=== PATIENT | male | born 1975 | race Caucasian/White ===

== ENCOUNTER 2023-05-20 09:17 | Outpatient (AMB) | payer BC, SELFPAY ==
--- NOTE | 2023-05-20 09:17 | A.OFFVIS_ITS ---
Intake Vital Signs 05/20/23 09:22 Height 6 ft Weight 159 lb 2 oz BMI 21.6 BP 124/76 Blood Pressure Location Lt brachial Position Sitting Respiration 15 Pulse 75 Pulse Source Pulse Oximeter Pulse Oximetry (%) 98 Oxygen Delivery Method Room Air Intake Visit Reasons: [id number] Intake Note: Pt presents to the office for new pt evaluation for nerve pain s/p TBI. He reports nerve pain on the left side of his head where my prosthetic meets my bone He reports it is sharp shooting pain that radiates towards the left rear side of his head along his scar. He also gets right sided pain but not as intense as the left. He states he is unable to get up quickly if bent over because this makes him very dizzy, causes visual disturbances and pain that makes him winded . His head injury was in . He feels the nerve pain has gotten worse as oposed to better over the years. Allergies duloxetine [From Cymbalta] Allergy (Mild, Verified 05/20/23 09:21) Abdominal Pain Medication List - Last Reconciled 05/20/23 by Eugenia Young MD amitriptyline 1-2 tabs qhs orally bedtime; lidocaine 5% 1 appl topical BEDTIME PRN HPI HPI Comments History of Present Illness Details 47y/o male comes for management of chron ic headaches since his head injury in 2011. In 2011 he had a fall at his home and hit his head. 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 He had left frontoparietal , left fronto SAH , right parietal subdural , left cerebellar , with basial skull fracture left temporal intraparenchymal hemorrhage , left temporal craniotomy and parietal lobectomy. He had 1 seizure when he was in PT and since then stable . He was on antiepiletics for 2 years and has been good [facility] But headaches have been persistent , [facility] [place]- tried on multiple medications AMitriptyline Gabapentin Topiramate Propranalol Depakote Tegretol Pregabalin Cymabalta - had violent reactions sumatriptan rizatriptan Botox X1 Nerve block He has 1 episode of severe headache a month and each episode can last 4 days.It is a stabbing pain in left frontal ( prosthetic meets the bone ) and radiates back to his neck and sometimes back.He has blurry vision , visual aura. He is light and noise sensitive. 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 In November 2022 he had minor head injury - hit his right side of the head in a piece of wood. No loss of consciousness. no change in headaches since then . [facility] Medical History (Updated 05/20/23 @ 11:23 by Eugenia Young MD) Cephalodynia Basilar skull fracture Cerebral hemorrhage Depression ICH (intracerebral hemorrhage) Chronic daily headache Surgical History H/O vasectomy History of adenoidectomy Hx of tonsillectomy History of testicular surgery History of cranial surgery Family History Mother No problems noted. Father No problems noted. Maternal Grandmother No problems noted. Maternal Grandfather No problems noted. Social History Alcohol intake: current Patient Tobacco Use Status: Former Tobacco user Cigarettes Per Day: 10 Years Smoked: 5-6 years Review of Systems Const Reports difficulty sleeping and Reports headache(s) ENT Reports headache(s) Neuro Reports headache(s) Physical Exam Vital Signs: Last Vital Signs Pulse 75 05/20/23 09:22 Resp 15 05/20/23 09:22 BP 124/76 05/20/23 09:22 Pulse Ox 98 05/20/23 09:22 Oxygen Delivery Method Room Air 05/20/23 09:22 BMI result Body Mass Index 21.6 Const General: cooperative, healthy appearing and comfortable Nutritional Appearance: average body habitus Orientation/consciousness: patient oriented x3 Eyes Pupils: Equal, round and reactive pupils present Neuro Other: tender and sensitive to touch in left frontal parietal area around the surgical scar General: patient oriented x3, gait normal, tone normal, moves all extremities and no focal motor deficits Cranial nerves: Yes Facial sensation intact/muscles of mastication intact, Yes Equal, round and reactive pupils present, Yes Bilaterally intact EOM present, Yes Nystagmus not present, Yes Normal facial strength present and Yes Midline t ongue present Cognition (Neuro): normal cognition Gait exam (Neuro): Normal gait present Motor exam (neuro): 5/5 motor strength present throughout and Normal motor muscle tone present throughout Deep tendon reflexes (DTR's): Right triceps reflex intensity grade: 1+, Left triceps reflex intensity grade: 1+, Rt Biceps (C5, C6): 1+, Left biceps reflex intensity grade: 1+, Right brachioradialis reflex intensity grade: 1+, Left brachioradialis reflex intensity grade: 1+, Right patellar reflex intensity g rade: 1+ and Left patellar reflex intensity grade: 1+ Coordination: [id number] test normal Assessment & Plan Assessment & Plan (1) Chronic daily headache: Code(s): R51.9 - Headache, unspecified (2) Cephalodynia: Code(s): R51.9 - Headache, unspecified Plan I will retrial him on AMitriptyline 10-20 mg qhs Lidocaine 5% cream of gel in affected areas. Pain management for eval and treatment. Orders: Referrals Pain Management Referral I61.9 - Nontraumatic intracerebral hemorrhage, unspeci fied, R51.9 - Headache, unspecified Medications: New amitriptyline 1-2 tabs qhs orally bedtime; 60 tabs 6RF lidocaine 5% 1 appl topical BEDTIME PRN 35.44 grams 6RF pain Coding Level of Care Code New Pt Level 4 (48800) Diagnoses Chronic daily headache R51.9 Cephalodynia R51.9
[2023-05-20 09:22] VITALS: BP 124/76; PULSE 75; RESP 15; O2SAT 98; BMI 21.6
== END 2023-05-20 10:08 | disposition home or self-care (01) ==
PROVIDERS: Visit Provider Psychiatry & Neurology Neurology
DX: R51.9 Headache, unspecified (principal)
CPT/HCPCS: 99204

== ENCOUNTER → 2023-05-20 09:17 | Outpatient (BNVA) | payer BC, SELFPAY | PROVIDERS: Visit Provider Psychiatry & Neurology Neurology ==

== ENCOUNTER 2023-08-24 09:02 | Outpatient (AMB) | payer BC, SELFPAY ==
--- NOTE | 2023-08-24 09:08 | A.OFFVIS_ITS ---
Intake Vital Signs 08/24/23 09:10 Height 6 ft Weight 159 lb 8 oz BMI 21.6 BP 110/58 L Blood Pressure Location Rt brachial Position Sitting Respiration 16 Pulse 67 Pulse Source Pulse Oximeter Pulse Oximetry (%) 97 Oxygen Delivery Method Room Air Intake Visit Reasons: 3 mnts - Confirmed Intake Note: Pt presents tot he office for a 3 month follow up for chronic headaches. 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 Pt denies any significant interval medical changes. Patient reports he continues to have frequent headaches. He has 2 main headache types. He did not tolerate the amitriptyline. Headache 1.: Mod-Severe, Pressure headache, usually left frontal region but can move around, a/w photophobia, phonophobia, nausea, dizziness at times, activity intolerance. This occurs almost every day. May have a couple days a month w/o any headache. Headache 2.: Left frontal (where the plate/bone) to occipital severe jolting shooting pain a/w left eye red/watery, left eye blurriness, photophobia, increased tinnitus- more so on left. No facial droop. The pain is so severe it stops him in his tracks, cannot move for a few minutes, then sits down/reclines and again does not move for a few hours, this slowly subsides over the next 4 days. This can be triggered by bending over. This occurs every 2 weeks, but can be less often. Currently not taking anything as needed. Does exercise- body weight exercises (push ups, pull ups), walks 10-14 miles per day. Denies constipation, Raynaud's, leg cramps. 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 He tries not to miss work. If he has an attack at work, he will just sit down at a desk. [facility] Medical History (Updated 08/24/23 @ 22:08 by TIMOTHY Angulo) Cephalodynia Basilar skull fracture Cerebral hemorrhage Depression ICH (intracerebral hemorrhage) Chronic daily headache Surgical History H/O vasectomy History of adenoidectomy Hx of tonsillectomy History of testicular surgery History of cranial surgery Family History Mother No problems noted. Father No problems noted. Maternal Grandmother No problems noted. Maternal Grandfather No problems noted. Social History Alcohol intake: current Patient Tobacco Use Status: Former Tobacco user Cigarettes Per Day: 10 Years Smoked: 5-6 years Physical Exam Vital Signs: Last Vital Signs Pulse 67 08/24/23 09:10 Resp 16 08/24/23 09:10 BP 110/58 L 08/24/23 09:10 Pulse Ox 97 08/24/23 09:10 Oxygen Delivery Method Room Air 08/24/23 09:10 BMI result Body Mass Index 21.6 Const General: cooperative and no acute distress Orientation/consciousness: patient oriented x3 Resp Effort & Inspection: normal respiratory effort and able to speak in complete sentences Neuro General: patient oriented x3 Cranial nerves: Yes CN's II-XII intact bilaterally Cognition (Neuro): normal cognition Psych Appearance: grossly normal Mental Status: mental status grossly normal Speech and movement: Normal speech and movement present Affect: normal affect Attitude: cooperative Assessment & Plan Assessment & Plan (1) Chronic migraine without aura: Code(s): G43.709 - Chronic migraine without aura, not intractable, without status migrainosus (2) Cephalodynia: Code(s): R51.9 - Headache, unspecified Plan Will request most recent head imaging from [facility]. For overall headache management: Discussed importance of good self-care, including but not limited to maintaining a healthy diet, adequate fluid intake, adequate sleep, and engaging in regular physical activity. For headache triggers: Track headaches, especially after any treatment regimen changes. [employer] is one of many headache tracking apps. For acute headache treatment: Discussed importance of taking acute medications at the first sign of headache, however stressed importance of avoiding acute medication overuse (especially with combined headache medications). Trial Ubrogepant (Ubrelvy) 100mg tab, 1/2 - 1 tab (50-100mg) at onset of headache, may repeat in 2 hours. Max of 2 tabs (200mg) per 24 hours. May adjunct with OTC Tylenol 650mg q 4 hours, Ibuprofen 600mg q 6 hours, or Naproxen 440mg q 12 hrs prn. Reviewed potential adverse effects of gepants, including but not limited to fatigue, nausea, dry mouth, constipation. Previous acute migraine medication trials: sumatriptan, rizatriptan- not effective Acute migraine medication contraindications: None at this time For headache prevention medication: Discussed that preventative medications should be taken routinely as prescribed for best effect, it may take several weeks for full effect to take effect. Start Aimovig 140 mg subcu monthly Reviewed potential adverse effects of Aimovig, including but not limited to injection site reactions, cramps, constipation, increase in blood pressure. Previous migraine prevention medication trials: AMitriptyline, Gabapentin, Topiramate, Propranalol, Depakote, Tegretol, Pregabalin, Botox X1, Nerve block- not effective. Cymabalta - had violent reactions Migraine prevention medication contraindications: None at this time Future considerations: Indomethacin trial. Follow-up in 2-3 months or sooner as needed Medications: New erenumab-aooe (Aimovig Autoinjector) 140 mg subcut ONCE 30 days 1 mL 6RF ubrogepant (Ubrelvy) take at onset of migraine, may repeat in 2hrs (may take w/ Ibuprofen) 50 - 100 mg (0.5 - 1 x 100 mg) PO ONCE 30 days PRN 16 tabs 3RF migraine headache Coding Level of Care Code Est Pt Level 4 (05917) Diagnoses Chronic migraine without aura G43.709 Cephalodynia R51.9
[2023-08-24 09:10] VITALS: BP 110/58; PULSE 67; RESP 16; O2SAT 97; BMI 21.6
== END 2023-08-24 10:34 | disposition home or self-care (01) ==
PROVIDERS: PCP Internal Medicine; Visit Provider Nurse Practitioner Family
DX: G43.709 Chronic migraine without aura, not intractable, without status migrainosus (principal); R51.9 Headache, unspecified
CPT/HCPCS: 99214

== ENCOUNTER → 2023-08-24 09:02 | Outpatient (BNVA) | payer BC, SELFPAY | PROVIDERS: PCP Internal Medicine; Visit Provider Nurse Practitioner Family ==

== ENCOUNTER 2023-11-25 09:26 | Outpatient (AMB) | payer BC, SELFPAY ==
[2023-11-25 09:34] VITALS: BP 112/70; PULSE 78; O2SAT 98; BMI 22.5
--- NOTE | 2023-11-25 09:34 | MHC.OFFVIS ---
Vital Signs 11/25/23 09:34 Height 6 ft Weight 166 lb BMI 22.5 BP 112/70 Blood Pressure Location Rt brachial Position Sitting Pulse 78 Pulse Source Pulse Oximeter Pulse Oximetry (%) 98 Intake Visit Reasons: 3 mo f/u/ Confirmed Intake Note: Patient presents for 3 month follow up. headaches are better. no issues or concerns Allergies duloxetine [From Cymbalta] Allergy (Mild, Verified 11/25/23 09:36) Abdominal Pain Medication List - Last Reconciled 11/25/23 by TIMOTHY Angulo erenumab-aooe (Aimovig Autoinjector) 140 mg subcut ONCE 30 days ubrogepant (Ubrelvy) 50 - 100 mg (0.5 - 1 x 100 mg) PO ONCE PRN 30 days HPI Comments Details: 47-yr-old male presents for f/u visit, accompanied by his . Pt denies any significant interval medical changes. Pt reports the headaches are overall better. He does still have headache not as strong. He does have superifcial head pains that are triggered by touching his scalp, the locations varies, but can run over the head when the areas are more sensitive. He can still have strong headache triggered by standing up quickly, which can last a few hrs. He does drink 10-20oz black coffee in the am, may not drink this everyday- does not notice nay difference in headaches on days he does or does not take coffee. He generally takes almost a gallon of water per day. He can have brief orthostatic lightheadedness. He does take salt. He does drink so much as he has dry mouth. States that he can deal w/ headache under 5/10. Baseline headache characteristics: Headache 1.: Mod-Severe, Pressure headache, usually left frontal region but can move around, a/w photophobia, phonophobia, nausea, dizziness at times, activity intolerance. This occurs almost every day. May have a couple days a month w/o any headache. Headache 2.: Left frontal (where the plate/bone) to occipital severe jolting shooting pain a/w left eye red/watery, left eye blurriness, photophobia, increased tinnitus- more so on left. No facial droop. The pain is so severe it stops him in his tracks, cannot move for a few minutes, then sits down/reclines and again does not move for a few hours, this slowly subsides over the next 4 days. This can be triggered by bending over. This occurs every 2 weeks, but can be less often. [facility] Medical History (Updated 11/25/23 @ 10:29 by TIMOTHY Angulo) Cephalodynia Basilar skull fracture Cerebral hemorrhage Depression ICH (intracerebral hemorrhage) Chronic daily headache Surgical History H/O vasectomy History of adenoidectomy Hx of tonsillectomy History of testicular surgery History of cranial surgery Family History Mother No problems noted. Father No problems noted. Maternal Grandmother No problems noted. Maternal Grandfather No problems noted. Social History Alcohol intake: current Patient Tobacco Use Status: Former Tobacco user Cigarettes Per Day: 10 Years Smoked: 5-6 years Physical Exam Vital Signs: Last Vital Signs Pulse 78 11/25/23 09:34 BP 112/70 11/25/23 09:34 Pulse Ox 98 11/25/23 09:34 BMI result Body Mass Index 22.5 Const General: cooperative and no acute distress Orientation/consciousness: patient oriented x3 Resp Effort & Inspection: normal respiratory effort and able to speak in complete sentences Neuro General: patient oriented x3 Cranial nerves: Yes CN's II-XII intact bilaterally Cognition (Neuro): normal cognition Psych Appearance: grossly normal Mental Status: mental status grossly normal Speech and movement: Normal speech and movement present Affect: normal affect Attitude: cooperative Assessment & Plan Assessment & Plan (1) Orthostatic lightheadedness: Code(s): R42 - Dizziness and giddiness Category: Medical (2) Postural headache: Code(s): R51.0 - Headache with orthostatic component, not elsewhere classified Category: Medical (3) Chronic migraine without aura: Code(s): G43.709 - Chronic migraine without aura, not intractable, without status migrainosus Category: Medical (4) Cephalodynia: Code(s): R51.9 - Headache, unspecified Category: Medical Plan Pt advised to undergo brain MRI w/wo to assess for signs of intracranial hypotension. Check labs. ? For overall headache management: Track headaches ? For acute headache treatment: Trial Indometahcin 25mg tid prn- taken w/ food for more superficial head pains. Ubrogepant (Ubrelvy) 100mg tab, 1/2 - 1 tab (50-100mg) at onset of headache, may repeat in 2 hours. Max of 2 tabs (200mg) per 24 hours. May adjunct with OTC Tylenol 650mg q 4 hours, Ibuprofen 600mg q 6 hours, or Naproxen 440mg q 12 hrs prn. Previous acute migraine medication trials: sumatriptan, rizatriptan- not effective Acute migraine medication contraindications: None at this time ? For headache prevention medication: Continue Aimovig 140 mg subcu monthly- as pt has had a significant reduction in severity and frequency in migraine headaches. Previous migraine prevention medication trials: AMitriptyline, Gabapentin, Topiramate, Propranalol, Depakote, Tegretol, Pregabalin, Botox X1, Nerve block- not effective. Cymbalta - had violent reactions Migraine prevention medication contraindications: None at this time Future considerations: Indomethacin trial. ? Follow-up upon review of above and in-clinic in 6 months or sooner as needed Orders: Orders Comprehensive Met. Panel Today R42 - Dizziness and giddiness, R51.0 - Headache with orthostatic component, not elsewhere classified Complete Blood Count Auto Diff Today R42 - Dizziness and giddiness, R51.0 - Headache with orthostatic component, not elsewhere classified MR head/brain wo/w con Today R42 - Dizziness and giddiness, R51.0 - Headache with orthostatic component, not elsewhere classified, R51.9 - Headache, unspecified Medications: New indomethacin administer with food or milk 25 mg PO TID 30 days 90 caps 3RF Coding Level of Care Code Est Pt Level 4 (30387) Diagnoses Orthostatic lightheadedness R42 Postural headache R51.0 Chronic migraine without aura G43.709 Cephalodynia R51.9
== END 2023-11-25 10:43 | disposition home or self-care (01) ==
PROVIDERS: PCP Internal Medicine; Visit Provider Nurse Practitioner Family
DX: R42 Dizziness and giddiness (principal); R51.0 Headache with orthostatic component, not elsewhere classified; G43.709 Chronic migraine without aura, not intractable, without status migrainosus; R51.9 Headache, unspecified
CPT/HCPCS: 99214

== ENCOUNTER → 2023-11-25 09:26 | Outpatient (BNVA) | payer BC, SELFPAY | PROVIDERS: PCP Internal Medicine; Visit Provider Nurse Practitioner Family ==

== ENCOUNTER 2023-12-01 08:56 | Outpatient (REF) | payer BC, SELFPAY | END 2023-12-01 08:57 | disposition home or self-care (01) | LOC: CF 08:56 | DX: Z13.89 Encounter for screening for other disorder (principal) ==

== ENCOUNTER 2023-12-21 09:06 | Outpatient (REF) | payer BC, SELFPAY ==
--- NOTE | ~2023-12-21 | MR_ITS ---
EXAMINATION: MR BRAIN WITHOUT AND WITH CONTRAST CLINICAL INFORMATION: Headache with orthostatic component. COMPARISON: Brain MRI from 08/17/2019. TECHNIQUE: MRI of the brain was obtained using routine sequences without and following the administration of 7 mL of Gadavist intravenous contrast. FINDINGS: Changes of left hemispheric craniectomy/cranioplasty and right pterional craniotomy. Chronic regions of encephalomalacia in the anterolateral left temporal lobe, anterior-inferior left frontal lobe, anterolateral left frontal lobe, and left precentral/post central gyri. Minimal thin dural enhancement subjacent to the cranioplasty. No focal restricted diffusion is demonstrated to suggest acute or subacute cerebral ischemia. No evidence of acute or chronic hemorrhagic products on heme-sensitive imaging. Few additional scattered periventricular and deep white matter T2 FLAIR hyperintensities. No additional parenchymal signal abnormalities. The ventricles are normal in morphology and size. No abnormal mass effect. No midline shift. SANKET Score: 1 (prepontine cistern less than 0.5 cm). Low probability of identifying a CSF leak/CSF-venous fistula at myelography. Normal appearance of the pituitary gland. Normal positioning of the cerebellar tonsils. Normal arterial and venous vascular flow voids are present. No abnormal contrast enhancement. Normal, homogeneous marrow signal. Moderate mucosal thickening of the paranasal sinuses. No signal abnormalities within the mastoids. MR/MR head/brain wo/w con IMPRESSION: 1. No acute intracranial abnormalities. No abnormal intracranial enhancement. 2. Chronic regions of encephalomalacia within the left frontal, temporal, and parietal lobes. 3. SANKET Score: 1 (prepontine cistern less than 0.5 cm). Low probability of identifying a CSF leak/CSF-venous fistula at myelography. 4. Moderate sinonasal mucosal disease.
[2023-12-21] MEDS: gadobutroL 7.5 ML VIAL IVPUSH (11:08)
== END 2023-12-21 09:07 | disposition home or self-care (01) ==
LOC: HO.MRI 09:06
PROVIDERS: PCP Internal Medicine; Visit Provider Nurse Practitioner Family
DX: R51.0 Headache with orthostatic component, not elsewhere classified (principal); R42 Dizziness and giddiness
CPT/HCPCS: 70553; A9585

== ENCOUNTER 2024-12-06 14:25 | Outpatient (AMB) | payer BC, SELFPAY ==
--- NOTE | 2024-12-06 14:33 | A.OFFVIS_ITS ---
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 Pt denies any significant interval medical changes. Pt reports a few months ago, he started experiencing episodes of dizziness, external world spinning. This is triggered by looking up w/ head in extension, or getting out of bed, or bending over and getting up quickly- usually lasts a few seconds and needs to sit/wait for a few seconds to get his bearings. Pt denies any preceding infections, injuries, travels. Pt is prone to nasal congestion, sinus congestion, bloody noses, left ear pain. In the past, ENT has drained his sinuses- last about 1.5 yrs ago. His notes that this time of year, his sinus congestion symptoms are worse. He also reports that he is falling asleep when sitting. notes snoring, apneas, gasping arousals, occasional restless sleep. He has a h/o broken nose. He is sleeping 4-6 hrs most nights. Pt reports the headaches are overall better. He does still have daily headache which are not as strong as before. He does have superficial head pains that are triggered by touching his scalp, the locations varies, but can run over the head when the areas are more sensitive. He can still have strong headache triggered by standing up quickly, which can last a few hrs. He can take the Ubrelvy at the earliest sign that a headache will come on with good effect. He is unclear if he tried indomethacin. Generally tries to stand up slowly, takes plenty of fluids, takes caffeine. Baseline headache characteristics: Headache 1.: Mod-Severe, Pressure headache, usually left frontal region but can move around, a/w photophobia, phonophobia, nausea, dizziness at times, activity intolerance. This occurs almost every day. May have a couple days a month w/o any headache. Headache 2.: Left frontal (where the plate/bone) to occipital severe jolting shooting pain a/w left eye red/watery, left eye blurriness, photophobia, increased tinnitus- more so on left. No facial droop. The pain is so severe it stops him in his tracks, cannot move for a few minutes, then sits down/reclines and again does not move for a few hours, this slowly subsides over the next 4 days. This can be triggered by bending over. This occurs every 2 weeks, but can be less often. 12/21/2023, MR/MR head/brain wo/w con IMPRESSION: 1. No acute intracranial abnormalities. No abnormal intracranial enhancement. 2. Chronic regions of encephalomalacia within the left frontal, temporal, and parietal lobes. 3. SANKET Score: 1 (prepontine cistern less than 0.5 cm). Low probability of identifying a CSF leak/CSF-venous fistula at myelography. 4. Moderate sinonasal mucosal disease. FORMERLY [facility], 1928–1983 Medical History (Updated 12/06/24 @ 17:06 by TIMOTHY Angulo) Cephalodynia Basilar skull fracture Cerebral hemorrhage Depression ICH (intracerebral hemorrhage) Chronic daily headache Surgical History H/O vasectomy History of adenoidectomy Hx of tonsillectomy History of testicular surgery History of cranial surgery Family History Mother No problems noted. Father No problems noted. Maternal Grandmother No problems noted. Maternal Grandfather No problems noted. Social History Alcohol intake: current Patient Tobacco Use Status: Former Tobacco user Cigarettes Per Day: 10 Years Smoked: 5-6 years Physical Exam Vital Signs: Last Vital Signs Pulse 81 12/06/24 14:34 BP 120/74 12/06/24 14:34 Pulse Ox 97 12/06/24 14:34 Oxygen Delivery Method Room Air 12/06/24 14:34 BMI result Body Mass Index 21.3 Const General: cooperative and no acute distress Orientation/consciousness: patient oriented x3 Resp Effort & Inspection: normal respiratory effort and able to speak in complete sentences Neuro Other: Mallampati stage 2-3 Bilateral erythematous, narrow nasal passages. Bilateral tympanic membrane effusion without exudate. Right external ear canal mild erythema. No palpable extra auricle ear pain General: patient oriented x3 Cranial nerves: Yes CN's II-XII intact bilaterally Cognition (Neuro): normal cognition Motor exam (neuro): 5/5 motor strength present throughout Psych Appearance: grossly normal Mental Status: mental status grossly normal Speech and movement: Normal speech and movement present Affect: normal affect Attitude: cooperative Assessment & Plan Assessment & Plan (1) Dizziness: Code(s): R42 - Dizziness and giddiness Category: Medical (2) Sinus congestion: Code(s): R09.81 - Nasal congestion Category: Medical (3) Orthostatic lightheadedness: Code(s): R42 - Dizziness and giddiness Category: Medical (4) Postural headache: Code(s): R51.0 - Headache with orthostatic component, not elsewhere classified Category: Medical (5) Chronic migraine without aura: Code(s): G43.709 - Chronic migraine without aura, not intractable, without status migrainosus Category: Medical (6) Cephalodynia: Code(s): R51.9 - Headache, unspecified Category: Medical (7) Snoring: Code(s): R06.83 - Snoring Category: Medical (8) Excessive daytime sleepiness: Comment: ESS 12 Code(s): G47.19 - Other hypersomnia Category: Medical Plan Reviewed interval 12/21/2023 brain MRI w/wo, which was requested to assess for signs of intracranial hypotension- * Stable left frontal, temporal, parietal lobes encephalomalacia. * SANKET score 1 owing to prepontine cistern lessens 0.5 cm- which correlates to a low probability of identifying a CSF leak or venous fistula on myelography. * Moderate sinonasal mucosal disease. For new onset dizziness, different from his typical lightheadedness symptoms: ciprofloxacin-dexamethasone 0.3-0.1 %- 4 drops to each ear every 12 hours for 7 days Cyproheptadine 4 mg daily at bedtime, at least 8-9 hours before morning wake-up time. Patient encouraged to resume his home nasal treatments, including Flonase, azelastine, Neti pot. We will request follow-up with ENT Patient advised to undergo HST to assess for sleep apnea. Consult on simple strategies to improve sleep hygiene, including that the average adult require 7-9 hours of sleep per night ? For overall headache management: Track headaches ? For acute headache treatment: As patient did not started, hold Indometahcin 25mg tid prn- taken w/ food for more superficial head pains. Ubrogepant (Ubrelvy) 100mg tab, 1/2 - 1 tab (50-100mg) at onset of headache, may repeat in 2 hours. Max of 2 tabs (200mg) per 24 hours. May adjunct with OTC Tylenol 650mg q 4 hours, Ibuprofen 600mg q 6 hours, or Naproxen 440mg q 12 hrs prn. Previous acute migraine medication trials: sumatriptan, rizatriptan- not effec tive Acute migraine medication contraindications: None at this time ? For headache prevention medication: Continue Aimovig 140 mg subcu monthly- as pt has had a significant reduction in severity and frequency in migraine headaches. Previous migraine prevention medication trials: AMitriptyline, Gabapentin, Topiramate, Propranalol, Depakote, Tegretol, Pregabalin, Botox X1, Nerve block- not effective. Cymbalta - had violent reactions Migraine prevention medication contraindications: None at this time Future considerations: Indomethacin trial. ? Follow-up upon review of above and in-clinic in 6 months or sooner as needed Orders: Orders RT home sleep study Today G47.19 - Other hypersomnia, G47.9 - Sleep disorder, unspecified, R06.83 - Snoring Referrals Ear/Nose/Throat Referral R09.81 - Nasal congestion, R42 - Dizziness and gidd iness Medications: New ciprofloxacin-dexamethasone 0.3-0.1 % 4 drps otic (ears) Q12H 7 days 7.5 mL 3RF cyproheptadine 4 mg PO BEDTIME 30 days 30 tabs 1RF Changed From azelastine administer into each nostril 2 sprays intranasal BID 30 days 30 mL 3RF To azelastine administer into each nostril after Flonase 2 sprays intranasal BID 30 days 30 mL 6RF Refilled ubrogepant (Ubrelvy) take at onset of migraine, may repeat in 2hrs (may take w/ Ibuprofen) 50 - 100 mg (0.5 - 1 x 100 mg) PO ONCE 30 days PRN 16 tabs 6RF migraine headache erenumab-aooe (Aimovig Autoinjector) 140 mg subcut ONCE 30 days 1 mL 6RF Discontinued indomethacin administer with food or milk Discontinued Reason: Doctor's Order 25 mg PO TID 30 days 90 caps 3RF Coding Level of Care Code Est Pt Level 4 (08066) Diagnoses Dizziness R42 Sinus congestion R09.81 Orthostatic lightheadedness R42 Postural headache R51.0 Chronic migraine without aura G43.709 Cephalodynia R51.9 Snoring R06.83 Excessive daytime sleepiness G47.19
[2024-12-06 14:34] VITALS: BP 120/74; PULSE 81; O2SAT 97; BMI 21.3
--- OUTSIDE RECORDS SUMMARY | 2024-12-06 15:15 | XMS_ITS | Patient Health Record ---
Author Organization [facility] Address [address] [place] [address] Care Team Providers Care Cattle Shipper Name Role Phone Marcelo Boogie Primary Care Provider Reason For Referral No Information Medications Medication SIG (Take, Route, Frequency, Duration) Notes Start Date End Date Status Naltrexone HCl 50 MG 30 Oral 1 qhs for chronic pain 10/15/2013 Active acetaZOLAMIDE 250 MG 120 Oral Increase 1 tab q 3 days up to full dose 2 tabs bid. for 03/15/2013 Active Gabapentin 300 MG 120 Oral Take 2 twice a day for 03/31/2015 Active EXCEDRIN MIGRAINE TABLET 250-250-65 MG 0 2 prn, uses 8/week *please review for potential update for e-prescription and drug interaction check* 03/14/2013 Active Plan Of Treatment No Information Insurance Providers Payer Name Payer Address Payer Phone Subscriber Number Group Number Insured Name Patient Relationship to Insured Coverage Start Date Coverage End Date [place] [address] [place], [place] [id number] Oscar Burgos Self - patient is the [facility] [address] [place], [place] [id number] Oscar Burgos Self - patient is the insured
== END 2024-12-06 15:41 | disposition home or self-care (01) ==
LOC: HO.HSMS 14:25
PROVIDERS: PCP Internal Medicine; Visit Provider Nurse Practitioner Family
DX: R42 Dizziness and giddiness (principal); R09.81 Nasal congestion; R51.0 Headache with orthostatic component, not elsewhere classified; G43.709 Chronic migraine without aura, not intractable, without status migrainosus; R51.9 Headache, unspecified; R06.83 Snoring; G47.19 Other hypersomnia
CPT/HCPCS: 99214

== ENCOUNTER → 2024-12-06 14:25 | Outpatient (BNVA) | payer BC, SELFPAY | PROVIDERS: PCP Internal Medicine; Visit Provider Nurse Practitioner Family ==

== ENCOUNTER → 2025-02-13 14:36 | Outpatient (REF) | payer BC, SELFPAY ==
--- OUTSIDE RECORDS SUMMARY | 2025-02-13 15:13 | XMS_ITS | Patient Health Record ---
Author Organization [facility] Address [address] [place] [address] Care Team Providers Care Byproducts Operator Name Role Phone Marcelo Boogie Primary Care [...] Start Date Coverage End Date [place] [address] [place], [place] [id number] Oscar Burgos Self - patient is the insured [employer] [address] [place], [place] [id number] Oscar Burgos Self - patient is the insured
--- OUTSIDE RECORDS SUMMARY | 2025-02-13 15:13 | XMS_ITS | Clinical Summary ---
Author Organization [facility] [address] [place] [address] Address [address] [place] [address] Phone Care Team Providers Care Product Marketing Analyst Name Role Phone Mago Cantor MD Primary Care Prov ider Allergies Active Allergy Reactions Criticality Noted Date Comments Duloxetine Hcl 06/10/2015 Suicidal ideation Medications Aimovig Autoinjector 140 mg/mL injection ADMINISTER 1 ML UNDER THE SKIN 1 TIME 5 Active Ubrelvy 100 mg tablet 5 Active azelastine (ASTELIN) 137 mcg (0.1 %) nasal spray INSTILL 2 SPRAYS INTRANASALLY TWICE DAILY FOR 30 DAYS. INSTILL IN EACH NOSTRIL AFTER FLONASE 5 Active cyproheptadine (PERIACTIN) 4 mg tablet Take 1 tablet (4 mg total) by mouth. at bedtime. 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 Overview (08/03/2024): Granuloma annulare 12/15 left index finger Recurrent major depression in remission ([facility] V24) 12/02/2014 Headaches due to old head trauma 03/21/2013 Cerebral hemorrhage ([facility] V24, [facility] V28) 0 11/05/2011 Overview (08/03/2024): L frontoparietal, L frontal SAH; R parietal subdural; L cerebellar W/ basilar skull fx; L temporal intraparencymal hemorrhage; L temp craneictomy and partial lobectomy. Vitamin D deficiency 11/03/2011 Encounters Date Type Department Care Team Description 01/01/2025 Telephone Gastroenterology - [place] [address] [place] [address] Stephane Yung MD special procedure 12/31/2024 2:30 PM EDT Office Visit Adult Medicine [facility] [address] [place] [phone] Mago Calero MD Special screening for malignant neoplasms, colon (Primary Dx); Encounter for screening involving social determinants of health (SDoH); Screening for depression; Chronic nonintractable headache, unspecified headache type from Last 3 Months Immunizations Name Administration Dates Next Due Moderna SARS-CoV-2 COVID-19, mRNA, LNP-S, preservative free 07/17/2021 Tdap Tetanus diptheria acell ular pertussis (Boostrix; Adacel) 7yo and older 10/20/2020,01/04/2018,10/09/2009 Surgical History Surgery Date Site/Laterality Comments VASECTOMY PROCEDURE: HI VASECTOMY UNI/BI SPX W/POSTOP SEMEN EXAMS OTHER SURGICAL HISTORY 09/2011; PROCEDURE: HI OPEN TX CRANIOFACIAL SEP COMP W/INT&/XTRNL FIX; COMMENT: Dr. Garibay; cranioplasty - replaced skull OTHER SURGICAL HISTORY PROCEDURE: HI CRANIECT/CRANIOT W/WO DURAPLASTY W/O LOBECTOMY OTHER SURGICAL HISTORY 04/27/12 PROCEDURE: HI CRANIOT TEMPORAL LOBE W/O ELECTROCORTICOGRAPHY; COMMENT: removal of plate and 2 screws, 2 attempted elevation of the bone flap OTHER SURGICAL HISTORY 11/2014 PROCEDURE: ---- OTHER ----; COMMENT: Dr. Barrera and Dr. Garibay- prosthetic to skull, had emergency surgery after complication of blood clot Medical History Medical History Date Comments Cerebellar hemorrhage (CMS/H CC V24, CMS/HCC V28) 09/12 DX:Cerebellar hemorrhage (HC C); COMMENT: L frontoparietal, L frontal SAH, R parietal subdural, L cerebellar Basilar skull fracture (CMS/ HCC V24, CMS/HCC V28) 09/12 DX:Basilar skull fracture (H CC) Major depression DX:Major depres markus Family History Relation Name Status Comments Brother Alive healthy Daughter Alive Linda; 2002 Father (Age 23) drowning Maternal Grandfather mi Maternal Grandmother Alive dementi a, frequent falls Mother Alive healthy Paternal Grandfather unknown Paternal Grandmother heart i ssue Sister 1 Alive healthy Sister 2 Alive half-sister; he althy Son Alive Manny; 2005 Social History Tobacco Use Types Packs/Day Years Used Date Smoking Tobacco: Former Smokeless Tobacco: Former Tobacco Cessation:Counseling Given: Not Answered Alcohol Use Standard Drinks/Week Comments Yes 0 (1 standard drink = 0.6 oz pur e alcohol) Housing Instability Answer Date Recorde d Are you worried that in the next 2 months you may not have stable housing? No 12/27/2024 Food Access & Nutrition Answer Date Rec orded Do you have access to a vari ety of food including fruits and vegetables? Yes 12/27/2024 Health Literacy Answer Date Recorded How often do you need to hav e someone help you when you read instructions, pamphlets, or other written material from your doctor or pharmacy? Never 12/27/2024 Caregiver: How often do you need to have someone help you when you read instructions, pamphlets, or other written material from your doctor or pharmacy? Not on file 12/27/2024 Financial Risk Answer Date Recorded How hard is it for you to pa y for the very basics like food, housing, medical care, and air conditioning / heating? Not very hard 12/27/2024 Transportation Answer Date Recorded Has the lack of transportati on kept you from meetings, work, or from getting things needed for daily living? No 12/27/2024 Has the lack of transportati on kept you from medical appointments or from getting medications? Not on file 12/27/2024 Social Isolation Answer Date Recorded How often do you feel lonely or isolated from th ose around you? Never 12/27/2024 Food Risk Answer Date Recorded Within the past 12 months we worried whether our food would run out before we got money to buy more. Never true 12/27/2024 Within the past 12 months th e food we bought just didn't last and we didn't have money to get more. Never true 12/27/2024 Education Answer Date Recorded Do you think completing more education or training, like finishing a GED, going to college, or learning a trade, would be helpful for you? N/A 12/27/2024 Sex and Gender Information Value Date Recorded Sex Assigned at Not on file Legal Sex Male 5:25 AM EST Gender Identity Not on file Sexual Orientation Not on file Obstetrics History Last Filed Vital Signs Vital Sign Reading Time Taken Comments Blood Pressure 113/66 12/31/2024 2:26 PM EDT Pulse 81 12/31/2024 2:26 PM EDT Temperature 37 C (98.6 F) 12/31/2024 2:26 PM EDT Respiratory Rate 18 12/31/2024 2:26 PM EDT Oxygen Saturation - - Inhaled Oxygen Concentration - - Weight 71.7 kg (158 lb) 12/31/2024 2:26 PM EDT Height 182.9 cm (6') 12/31/2024 2:26 PM EDT Body Mass Index 21.43 12/31/2024 2:26 PM EDT Plan of Treatment Upcoming Encounters Date Type Department Care Team (Late st Contact Info) Description 04/22/2025 1:30 PM EDT Appointment [facility] [address] [place] [phone] Arun Sawyer DO [address] [address] 05/15/2025 3:00 PM EDT Office Visit Adult Medicine [facility] [address] [place] [phone] Christiana Maynard PA [address] [place] [address] Health Maintenance Due Date Last Done Comments Hepatitis B Vaccines (1 of 3 - 19+ 3-dose series) 12/20/1995 Colorectal Cancer Screening: Colonoscopy 07/04/2022 HIV Screening 07/04/2022 Hepatitis C Screening 07/04/2022 COVID-19 Vaccine (4 - 2023-2 5 season) 2024 07/17/2021, 11/02/2020, 10/05/2020 Influenza Vaccine (#1) 2025 Depression Screening 12/27/2025 12/27/2024 Social Influencers of Health Screening 12/27/2025 12/27/2024 Cholesterol Screening (Lipid Panel) 08/05/2026 08/05/2021 DTaP,Tdap,and Td Vaccines (4 - Td or Tdap) 10/20/2030 10/20/2020, 01/04/2018, 10/09/2009 HIB Vaccines Aged Out No longer eligi ble based on patient's age to complete this topic HPV Vaccines Aged Out No longer eligi ble based on patient's age to complete this topic Hepatitis A Vaccines Aged Out No long er eligible based on patient's age to complete this topic IPV Vaccines Aged Out No longer eligi ble based on patient's age to complete this topic MMR Vaccines Aged Out No longer eligi ble based on patient's age to complete this topic Meningococcal ACWY Vaccine Aged Out N o longer eligible based on patient's age to complete this topic Meningococcal B Vaccine Aged Out No l onger eligible based on patient's age to complete this topic Pneumococcal Vaccine: Pediatrics (0 to 5 Years) and At-Risk Patients (6 to 49 Years) Aged Out No longer eligible b ased on patient's age to complete this topic RSV Immunization Patients Under 20 months Aged Out No longer eligible b ased on patient's age to complete this topic Varicella Vaccines Aged Out No longer eligible based on patient's age to complete this topic Procedures Procedure Name Priority Date/Time Associated Diagnosis Comments LIPID PANEL Routine 08/05/2021 from Last 3 Months or Most Recently Relevant to Health Maintenance Results * Lipid panel (08/05/2021) LDL/HDL Ratio 3 0 - 4 Triglycerides 134 0 - 150 mg/dL Cholesterol 195 0 - 200 mg/dL HDL 70 >=40 mg/dL LDL Cholesterol 99 0 - 100 mg/dL Blood Venous blood specimen / Unknown us Historical Provider LAB BLOOD ORDERABLES Ivelisse l Result from Last 3 Months or Most Recently Relevant to Health Maintenance Insurance [facility] Care Teams Product Marketing Analyst Relationship Specialty Start Date End Date Mago Cantor MD PCP - General 12/07/22
== END ==
LOC: HO.SL 14:36
PROVIDERS: PCP Internal Medicine; Visit Provider Nurse Practitioner Family
DX: R06.83 Snoring (principal); G47.19 Other hypersomnia; G47.9 Sleep disorder, unspecified
CPT/HCPCS: 95806

== ENCOUNTER → 2025-02-13 14:47 | Outpatient (BNV) | payer BC, SELFPAY | PROVIDERS: PCP Internal Medicine; Visit Provider Psychiatry & Neurology Neurology | DX: R06.83 Snoring (principal) | CPT/HCPCS: 95806 ==

== ENCOUNTER 2025-06-04 14:24 | Outpatient (AMB) | payer BC, SELFPAY ==
[2025-06-04 14:42] VITALS: BP 120/80; PULSE 79; O2SAT 97; BMI 21.8
--- NOTE | 2025-06-04 14:42 | A.OFFVIS_ITS ---
Vital Signs 06/04/25 14:42 Height 6 ft Weight 161 lb BMI 21.8 BP 120/80 Blood Pressure Location Rt brachial Position Sitting Pulse 79 Pulse Source Pulse Oximeter Pulse Oximetry (%) 97 Oxygen Delivery Method Room Air Intake Visit Reasons: 6 mo follow up Check Airman Required: No Accompanied by: Self / Same As Patient Allergies duloxetine (From Cymbalta) Allergy (Mild, Verified 06/04/25 14:43) Abdominal Pain Medication List - Last Reconciled 06/04/25 by TIMOTHY Angulo azelastine 2 sprays intranasal BID 30 days ciprofloxacin-dexamethasone 0.3-0.1 % 4 drps otic (ears) Q12H 7 days cyproheptadine 4 mg PO BEDTIME 30 days ubrogepant (Ubrelvy) 50 - 100 mg (0.5 - 1 x 100 mg) PO ONCE PRN 30 days HPI Comments Details: 49-yr-old male presents for follow-up visit of positional headache, migraine, and vertigo. Pt denies any significant interval medical changes. He reports that the room spinning vertigo has resolved. He did see ENT, who also referred him to vestibular therapy, however by the time of the appointment 2 weeks later, the vertigo had resolved. He reports that he stopped the Aimovig, as he was not finding it very effective. He continues to have daily headache, which can be exacerbated into a full severe migraine attack a/w photophobia nausea vomiting. Triggers continue to include repetitively bending over and getting backup, or walking up and down hills, such as when playing golf. He does continue to have the superficial head pains, triggered by touching his scalp or letting his hair grow. Though, he is trying to allow it to grow out to see if this would make any change. He states that Ubrelvy is usually effective, as long as he takes it at the 1st sign of the migraine attack. He notes that ice and cold can be helpful, such as applying a migraine cooling cap that covers both the scalp and eyes, or leaving his office (which is warmer in general) and going onto the floor which is much colder. He continues to try to stand slowly, take sufficient fluids and caffeine. 12/06/2024, HPI: Pt reports a few months ago, he started experiencing episodes of dizziness, external world spinning. This is triggered by looking up w/ head in extension, or getting out of bed, or bending over and getting up quickly- usually lasts a few seconds and needs to sit/wait for a few seconds to get his bearings. Pt denies any preceding infections, injuries, travels. Pt is prone to nasal congestion, sinus congestion, bloody noses, left ear pain. In the past, ENT has drained his sinuses- last about 1.5 yrs ago. His notes that this time of year, his sinus congestion symptoms are worse. He also reports that he is falling asleep when sitting. notes snoring, apneas, gasping arousals, occasional restless sleep. He has a h/o broken nose. He is sleeping 4-6 hrs most nights. Pt reports the headaches are overall better. He does still have daily headache which are not as strong as before. He does have superficial head pains that are triggered by touching his scalp, the locations varies, but can run over the head when the areas are more sensitive. He can still have strong headache triggered by standing up quickly, which can last a few hrs. He can take the Ubrelvy at the earliest sign that a headache will come on with good effect. He is unclear if he tried indomethacin. Generally tries to stand up slowly, takes plenty of fluids, takes caffeine. Baseline headache characteristics: Headache 1.: Mod-Severe, Pressure headache, usually left frontal region but can move around, a/w photophobia, phonophobia, nausea, dizziness at times, activity intolerance. This occurs almost every day. May have a couple days a month w/o any headache. Headache 2.: Left frontal (where the plate/bone) to occipital severe jolting shooting pain a/w left eye red/watery, left eye blurriness, photophobia, increased tinnitus- more so on left. No facial droop. The pain is so severe it stops him in his tracks, cannot move for a few minutes, then sits down/reclines and again does not move for a few hours, this slowly subsides over the next 4 days. This can be triggered by bending over. This occurs every 2 weeks, but can be less often. 12/21/2023, MR/MR head/brain wo/w con IMPRESSION: 1. No acute intracranial abnormalities. No abnormal intracranial enhancement. 2. Chronic regions of encephalomalacia within the left frontal, temporal, and parietal lobes. 3. SANKET Score: 1 (prepontine cistern less than 0.5 cm). Low probability of identifying a CSF leak/CSF-venous fistula at myelography. 4. Moderate sinonasal mucosal disease. [facility] Medical History (Updated 06/04/25 @ 17:24 by TIMOTHY Angulo) Cephalodynia Basilar skull fracture Cerebral hemorrhage Depression ICH (intracerebral hemorrhage) Chronic daily headache Surgical History (Updated 06/04/25 @ 14:46 by Fe Asher CMA) Hx of colonoscopy H/O vasectomy History of adenoidectomy Hx of tonsillectomy History of testicular surgery History of cranial surgery Family History Mother No problems noted. Father No problems noted. Maternal Grandmother No problems noted. Maternal Grandfather No problems noted. Social History Alcohol intake: current Patient Tobacco Use Status: Former Tobacco user Cigarettes Per Day: 10 Years Smoked: 5-6 years Physical Exam Vital Signs: Last Vital Signs Pulse 79 06/04/25 14:42 BP 120/80 06/04/25 14:42 Pulse Ox 97 06/04/25 14:42 Oxygen Delivery Method Room Air 06/04/25 14:42 BMI result Body Mass Index 21.8 Const General: cooperative and no acute distress Orientation/consciousness: patient oriented x3 Resp Effort & Inspection: normal respiratory effort and able to speak in complete sentences Neuro Other: Mallampati stage 2-3 Bilateral erythematous, narrow nasal passages. Bilateral tympanic membrane effusion without exudate. Right external ear canal mild erythema. No palpable extra auricle ear pain General: patient oriented x3 Cranial nerves: Yes CN's II-XII intact bilaterally Cognition (Neuro): normal cognition Motor exam (neuro): 5/5 motor strength present throughout Psych Appearance: grossly normal Mental Status: mental status grossly normal Speech and movement: Normal speech and movement present Affect: normal affect Attitude: cooperative Assessment & Plan Assessment & Plan (1) Postural headache: Code(s): R51.0 - Headache with orthostatic component, not elsewhere classified Category: Medical (2) Orthostatic lightheadedness: Code(s): R42 - Dizziness and giddiness Category: Medical (3) Chronic migraine without aura: Code(s): G43.709 - Chronic migraine without aura, not intractable, without status migrainosus Category: Medical Qualifiers: Intractability: not intractable Status migrainosus presence: without status migrainosus Qualified Code(s): G43.709 - Chronic migraine without aura, not intractable, without status migrainosus (4) Dizziness: Comment: Resolved Code(s): R42 - Dizziness and giddiness Category: Medical (5) Cephalodynia: Code(s): R51.9 - Headache, unspecified Category: Medical Qualifiers: Headache chronicity pattern: chronic headache Headache type: unspecified Intractability: intractable Qualified Code(s): R51.9 - Headache, unspecified; G89.29 - Other chronic pain (6) Snoring: Code(s): R06.83 - Snoring Category: Medical Plan Previous 12/21/2023 brain MRI w/wo, which was requested to assess for signs of intracranial hypotension- * Stable left frontal, temporal, parietal lobes encephalomalacia. * SANKET score 1 owing to prepontine cistern lessens 0.5 cm- which correlates to a low probability of identifying a CSF leak or venous fistula on myelography. * Moderate sinonasal mucosal disease. For new onset dizziness, different from his typical lightheadedness symptoms: Resolved Follow-up with ENT as scheduled Reviewed HST: No evidence of sleep apnea * 02/13/2025 AHI 4 per hour, average SpO2 94% with O2 rehana 81% and SpO2 under 80% for 1 minute of study time. Previously reviewed simple strategies to improve sleep hygiene, including that the average adult require 7-9 hours of sleep per night For overall headache management: Track headaches Continue migraine cooling cap as needed Advised him to trial OTC external trigeminal neurostimulator for both acute and preventative migraine treatment, such as Cefaly or Head-A-Term Advised him to trial OTC green light bulbs, such as NorbRelief Other considerations, include trial of RENs neurostimulation device, such as Nerivio. ? For acute headache treatment: Continue Ubrogepant (Ubrelvy) 100mg tab, 1/2 - 1 tab (50-100mg) at onset of headache, may repeat in 2 hours. Max of 2 tabs (200mg) per 24 hours. May adjunct with OTC Tylenol 650 to a 1000 mg every 4-6 hours as needed. Hold all ibuprofen, naproxen, ibuprofen, aspirin. Previous acute migraine medication trials: sumatriptan, rizatriptan- not effective Acute migraine medication contraindications: None at this time ? For headache prevention medication: Discontinue Aimovig 140 mg subcu monthly order, as this was not effective. Start indomethacin titration: * Week 1 and 2: 25 mg 3 times a day with food * Then check CBC and BMP, and if within normal limits * Week 3 and 4: 50 mg 3 times a day with food * Then check CBC and BMP, and if again within normal limits * Week 5 and onward: 75 mg 3 times a day with food * Week 7: Check CBC and BMP Previous migraine prevention medication trials: Amitriptyline caused mood changes. Gabapentin, Topiramate, Propranalol, Depakote, Tegretol, Pregabalin, Botox X1, Nerve block- not effective. Cymbalta - had mood changes and violent reactions with punching a door. Aimovig 140 mg was not very effective. Migraine prevention medication contraindications: Caution with antidepressants, as previous trials of amitriptyline and Cymbalta have cause mood changes (patient denies a personal or family history of bipolar disorder). ? Follow-up upon review of above and in-clinic in 6 months or sooner as needed Orders: Orders Complete Blood Count Auto Diff 06/04/25 R42 - Dizziness and giddiness, R51.0 - Headache with orthostatic component, not elsewhere classified, Z79.1 - half-way (current) use of non-steroidal anti-inflammatories (NSAID) Basic Metabolic Panel 06/04/25 R42 - Dizziness and giddiness, R51.0 - Headache with orthostatic component, not elsewhere classified, Z79.1 - vermin exterminator (current) use of non-steroidal anti-inflammatories (NSAID) Medications: New indomethacin administer with food or milk 25 mg PO TID 42 caps 0RF 14 days Coding Level of Care Code Est Pt Level 4 (64859) Diagnoses Postural headache R51.0 Orthostatic lightheadedness R42 Chronic migraine without aura without status migrainosus, not intractable G43.709 Intractability: not intractable Status migrainosus presence: without status migrainosus Dizziness R42 Chronic intractable headache, unspecified headache type R51.9; G89.29 Headache chronicity pattern: chronic headache Headache type: unspecified Intractability: intractable Snoring R06.83
--- OUTSIDE RECORDS SUMMARY | 2025-06-04 17:26 | XMS_ITS | Patient Health Record ---
Author Organization [facility] Address [address] [place] [address] Care Team Providers Care Collar Pointer Name Role Phone Marcelo Boogie Primary Care Provider [phone] Reason For Referral No Information Medications Medication SIG (Take, Route, Frequency, Duration) Notes Start Date End Date Status Naltrexone HCl 50 MG 30 Oral 1 qhs for chronic pain 10/15/2013 Active acetaZOLAMIDE 250 MG 120 Oral Increase 1 tab q 3 days up to full dose 2 tabs bid.; Duration: 03/15/2013 Active Gabapentin 300 MG 120 Oral Take 2 twice a day; Duration: 03/31/2015 Active EXCEDRIN MIGRAINE TABLET 250-250-65 MG 0 2 prn, uses 8/week *please review for potential update for e-prescription and drug interaction check* 03/14/2013 Active Plan Of Treatment No Information Insurance Providers Payer Name Payer Address Payer Phone Subscriber Number Group Number Insured Name Patient Relationship to Insured Coverage Start Date Coverage End Date [employer] [place] [address] [place], [place] [id number] Oscar Burgos Self - patient is the insured [employer] O [address] [place], [place] [id number] Oscar Burgos Self - patient is the insured
--- OUTSIDE RECORDS SUMMARY | 2025-06-04 17:26 | XMS_ITS | Data Portability ---
Author Organization [place] - [facility], Allergy Address [address] [address] Care Team Providers Care Optical Glass Etcher Name Role Phone VALENTEMELISSA Primary Care Provider Assessment Encounter Date Assessment Date Assessment LastModified by Organization Details LastModified Time 03/07/2025 03/07/2025 Patient with episodic positionally induced vertigo. [place]-Hallpike was positive for vertigo and rotary nystagmus with the head to the right. We discussed that the patient s pattern of symptoms and physical exam findings are most consistent with benign paroxysmal positional vertigo (BPPV). The pathophysiology of BPPV was discussed in detail. Patient was provided with a referral to AT for Ludin maneuvers and vestibular therapy.We discussed the fact that treatment of BPPV can require anywhere from 1 to 6 treatments for successful results, and has approximately 95% success rate in eliminating symptoms. BPPV can recur and if the classic positionally induced symptoms do recur, patient can call for further referrals. The patient reports hearing loss, worse in the left ear. He did not have time to carry out audiometric testing today, so hearing test will be scheduled at a later date to evaluate the extent of hearing impairment. [email or web address] Not available 03/07/2025 16:24:58 04/04/2025 04/04/2025 The patient demonstrates high-frequency hearing loss likely due to occupational noise exposure, which may also be contributing to his tinnitus. I recommend the patient continue using hearing protection consistently to prevent further damage. Vestibular therapy is expected to provide significant benefit for his BPPV, and he is scheduled to begin therapy next week. No other red flags were identified during this visit. I will remain available for further assistance if needed. [email or web address] Not available 04/04/2025 16:27:48 Plan of Treatment Reminders Order Date Submit Date Provider Last Modified By Organization Details Last Modified Time Details Appointments None record ed. Lab None record ed. Referral None record ed. Procedures None record ed. Surgeries None record ed. Imaging None record ed. Medication Orders None record ed. Patient TargetsNo targets recorded. Patient Instructions Encounter Date Encounter Id Patient Instructions Last Modified By Organization Details Last Modified Time 03/07/2025 [id number] Contact a physical therapy office in [place] to schedule vestibular rehabilitation therapy for BPPV. Schedule a hearing test at a later date to evaluate hearing loss. [email or web address] Not available 03/07/2025 16:25:07 Please note: Par ts of this encounter note have been generated by AI based on audio conversation. Patient consent was required prior to utilizing this technology. Content review was required prior to finalizing the note. Not available 03/07/2025 16:22:18 04/04/2025 [id number] Begin vestibular therapy next week. Continue using hearing protection consistently to prevent further hearing damage. [email or web address] Not available 04/04/2025 16:26:59 Please note: Par ts of this encounter note have been generated by AI based on audio conversation. Patient consent was required prior to utilizing this technology. Content review was required prior to finalizing the note. [email or web address] Not available 04/04/2025 16:26:59 Reason for Referral None Reported. Results Created Date Observation Date Name Description Value Unit Range Abnormal Flag Note LastModifiedBy Organization Detail LastModifiedTime 04/08/20 25 audio gram No observ ation record ed. BARCODE Not Available 2024 12:02:22 Result Notes None recorded. Problems Name Problem SNOMED Code Status Onset Date Resolution Date Notes Provider Name and Address Organization Details Recorded Time Chronic sinusitis 90534949 Active 2022 Chronic sinusitis , unspecifi ed; Note: Date Diagnosed : 01/18/2023 11:12 AM (J32.9) Not Available [facility] 02:19:33 Sensorine ural hearing loss of bilateral ears 481739265 Active 2022 Sensorine ural hearing loss, bilateral ; Note: Date Diagnosed : 02/22/2023 5:37 PM (H90.3) Not Available [facility] 4 02:18:58 Bilateral tinnitus 81625856867 02 Active 2022 Tinnitus, bilateral ; Note: Date Diagnosed : 02/22/2023 4:33 PM (H93.13) Not Available [facility] 4 02:20:21 Benign paroxysma l positiona l vertigo 354896367 Active 2024 SKYLAR SUMNER MD [address] [place] [address],[place] [address], [facility] [place], [address] , [facility] - [facility] 5 16:25:13 Noise effects on inner ear 17585009 Active 2024 SKYLAR SUMNER MD [address] [place] [address],[place] [address], [facility] [place], [address] , [facility] 5 16:26:04 Problem Notes None recorded. Procedures Surgical History Date Name Laterality Status Provider Name and Address Organization Details Recorded Time 04/04/2025 Comp Audio with Tymps - 12676 & 07129 completed SOTO YBARRA [place], CCC-A [address] [facility],[place] [address], [place], [address], [facility] 04/04/2025 15:44:53 Imaging Results None recorded. Procedure Notes None recorded. Medical Equipment None Reported. Allergies No known drug allergies Medications Name Sig Start Date Stop Date Status Note LastModified by Organization Details LastModified Time cyprohept adine 4 mg tablet TAKE 1 TABLET BY MOUTH AT BEDTIME active Not Available Not Available No t Available azelastin e 137 mcg (0.1 %) nasal spray INSTILL 2 SPRAYS INTRANAS ALLY TWICE DAILY FOR 30 DAYS. INSTILL IN EACH NOSTRIL AFTER FLONASE active Not Available Not Available No t Available amoxicill in 875 mg-potass ium clavulana te 125 mg tablet Take 1 tablet by mouth twice a day with meals 04/04 completed Medicati on ID: [id number] D uration Value: 21 Prescri bed By Name: IFRAH Clarke nd Name: Prince leigh Send Method: E-Prescr ibed Sub s Allowed: subs OK Medic ationGen ericName : Augmenti n Not Available Not Available Not Available ciproflox acin 0.3 %-dexamet hasone 0.1 % ear drops,wilian pension SHAKE LIQUID AND INSTILL 4 DROPPERF UL TO AFFECTED EAR EVERY 12 HOURS FOR 7 DAYS 04/04 completed Not Available Not Available Not Available Aimovig Autoinjec tor 140 mg/mL subcutane ous auto-inje ctor ADMINIST ER 1 ML UNDER THE SKIN 1 TIME active Not Available Not Available No t Available Ubrelvy 100 mg tablet active Not Available Not Available Not Available Vitals Date Recorded Body height Body mass index (BMI) Body weight Provider Name and Address Organization Details Last Updated DateTime 03/07/2025 182.88 cm 21.4 kg/m2 77340.59 g Faye Denise [place] - [facility] 03/07/2025 16:02:17 Social History Question Answer Notes LastModified by Organizat ion Details LastModified Time Tobacco Smoking Status Former Smoker Laura chao [place] - [facility] 04/04/2025 16:14:10 How Many Years Have You Consumed Alcohol? 30 Information not available 04/04/2025 What Type Of Instruments Sales Representative Do You Use? None Information not available 04/04/2025 How Many Alcoholic Drinks Do You Consume Per Day On Average? 3 [email or web address] Information not available 04/04/2025 Which Illicit Or Recreational Drugs Have You Used? Edibles [email or web address] Information not available 04/04/2025 When Did You Quit Smoking? 16+yearssinc elastcigaret te [email or web address] Information not available 04/04/2025 How Many Years Have You Used Illicit Or Recreational Drugs? 1 [email or web address] Information not available 04/04/2025 What Is Your Current Pack Years? 10packyears [email or web address] Information not available 04/04/2025 Do You Have Any Pets? Yes [email or web address] Information not available 04/04/2025 At What Age Did You Start Smoking Tobacco? 20 [email or web address] Information not available 04/04/2025 Are You Passively Exposed To Smoke? No [email or web address] Information no t available 04/04/2025 Are There Any Smokers In Your House? No [email or web address] Information not available 04/04/2025 How Much Tobacco Do You Smoke? No [email or web address] Information not available 04/04/2025 How Many Years Have You Smoked Tobacco? 3 [email or web address] Information not available 04/04/2025 Have You Used IV Drugs? No [email or web address] Information not available 04/04/2025 Sex: Unknown Functional Status Question Answer Note LastModified by Organizat ion Details LastModified Time How many times per week do you consume alcohol? 3-4 times per week [email or web address] Information not available 04/04/2025 Do you use any illicit or recreational drugs? Yes [email or web address] Information not available 04/04/2025 Do you or have you ever used any other forms of tobacco or nicotine? No [email or web address] Information not available 04/04/2025 What is your level of alcohol consumption? Moderate [email or web address] Information not available 04/04/2025 What type of noise exposure are you exposed to? Industrial [email or web address] Information not available 04/04/2025 Mental Status None recorded. Family History Nothing Reported. Medical History Condition Response Allergies/Hayfever Y Heart Problems N Anxiety N Tonsil Infections N Emphysema N Migraines Y Thyroid Problems N Depression N COPD N Developmental Delay N Glaucoma N Nasal or Sinus Problems Y Anemia N Immune System Disorder N Anesthesia Complications N Heart Attack (ND) N Other Skin Condition N Diabetes N Rhinitis N Bleeding Disorder N Food Allergy N Hearing Loss Y Arthritis N Hyperlipidemia N Cancer N Stroke N Dementia N Nasal polyps N Asthma N Sleep Disorder N High Cholesterol N GERD/Reflux N Liver Disease N Headaches Y Fibromyalgia N Hypertension N Speech Delay N Kidney Disease N Past Encounters Encounter ID Performer Location Encounter Start Date Encounter Closed Date Diagnosis/Indication Diagnosis SNOMED-CT Code Diagnosis ICD10 Code Diagnosis IMO Codes Diagnosis Note [id number] SKYLAR SUMNER MD [facility] [address] [address] 03/07/2025 15:20:37 03/07/2025 16:27:42 Benign paroxysmal positional vertigo 900536749 H81.11 53527154 Sensorineu ral hearing loss of bilateral ears 768523475 H90.3 [id number] SKYLAR SUMNER MD [facility] [address] [place] [place] [address] 04/04/2025 14:59:43 04/04/2025 16:27:09 Sensorineural hearing loss of bilateral ears 705327831 H90.3 Audiologic al evaluation results: Right & Left ears: Normal/ borderline normal hearing thru 4000Hz dropping to a moderate-s evere SNHL with excellent word recognitio n. Tympanomet ry: Right Ear:Type Ad Left Ear:Type A Bilateral tinnitus 29412 83648 102 H93.13 Noise effe cts on inner ear 34938045 H83.3X3 6681554 Benign par oxysmal positional vertigo 411597921 H81.11 11398485 Health Concerns Section Related Observation LastModified by Organization Detai ls LastModified Time None Recorded Concern Status LastModified by Organization Details LastModified Time None Recorded Advance Directives Directive None Recorded Payers Insurance Date Sequence Insurance Name Policy Number Policy Dexter Covered Member ID Dexter Member ID Guarantor Name 04/10/2025 1 [facility] [place] [place] [facility] [place] [id number] Chelsey Burgos [id number] Oscar Burgos Notes Date Note Type Note Provider Name and Address Organization Details Recorded Time 03/07/2025 text/html 49-year-old male who was seen by Lalita Gamez PA-C back in January 2023. He had been treated for chronic sinus infection with success. Patient reported history of fluctuating tinnitus and episodic dizziness at that time. Audiometric testing showed high-frequency sensorineural hearing loss limited to 6000 through 8000 Hz Patient presents for evaluation of dizziness and hearing loss. He reports experiencing dizziness when looking up for extended periods, rolling over in bed, or sitting up too quickly. He describes the sensation as similar to spinning after consuming alcohol, which resolves after a brief period. 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 He also reports hearing loss, which is worse in the left ear compared to the right. 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 He had his tonsils removed at the age of 14. He has previously undergone a sleep study, but the results were communicated to him only briefly, and no treatment plan was established. He has been treated with Aimovig injections for migraines, which he reports are no longer effective. SKYLAR SUMNER MD [address] [facility],[address], [address], [place] - [facility] 03/07/2025 16:25:44 04/04/2025 text/html 49-year-old male seen back in March with BPPV and hearing loss. Patient sent for vestibular rehabilitation therapy. He has not yet had an opportunity to schedule this yet but is scheduled for this next week. He comes in today for audiometric testing, which was not able to be at his last visit. 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 Hearing protection has been used consistently for the past two years. He has not yet started vestibular therapy but plans to begin next week. He recently returned from a vacation in [place], [place]. SKYLAR SUMNER MD [address] [facility],[place] [address], [place], [address], [place] - [facility] 04/04/2025 16:28:07
--- OUTSIDE RECORDS SUMMARY | 2025-06-04 17:26 | XMS_ITS ---
Author Name [facility] Organization Unknown Care Team Organization Name Specialty Phone Email Start Date End Da te [facility] Mago Gonsales [facility] 10/06/2022 03/19/2024 [facility] Termed, PROVIDER Primary Care 06/08/202203/01
--- OUTSIDE RECORDS SUMMARY | 2025-06-04 17:26 | XMS_ITS | Clinical Summary ---
Author Organization [facility] Address [address] [place] [address] Phone Care Team Providers Care Groundwater Programs Director Name Role Phone Yessenia Rivera MD Primary Care Provider + Allergies No known active allergies Social History Tobacco Use Types Packs/Day Years Used Date Smoking Tobacco: Never Sex and Gender Information Value Date Recorded Sex Assigned at Not on file Legal Sex Male 6:42 PM EST Gender Identity Not on file Sexual Orientation Not on file Last Filed Vital Signs Vital Sign Reading Time Taken Comments Blood Pressure - - Pulse - - Temperature - - Respiratory Rate - - Oxygen Saturation - - Inhaled Oxygen Concentration - - Weight 70.3 kg (155 lb) 05/10/2014 7:55 AM EDT Height 182.9 cm (6') 05/10/2014 7:55 AM EDT Body Mass Index 21.02 05/10/2014 7:55 AM EDT Plan of Treatment Not on file Medical Devices Not on file Insurance [facility] [place] [place] [address] PPO EPO [facility] [place] [address] [place] [address] PPO EPO [facility] [place] [address] [place] [address] [place] [address] [place] [address] PPO EPO [facility] PPO EPO [facility] PPO EPO Care Teams Groundwater Programs Director Relationship Specialty Start Date End Date Yessenia Rivera MD [address] [place] [address] PCP - General Pediatrics 03/28/14 Additional Source Comments The information contained in this document represents components of the legal health record. It is not the complete legal health record.[facility]
--- OUTSIDE RECORDS SUMMARY | 2025-06-04 17:26 | XMS_ITS | Encounter Summary ---
Author Organization [facility] Address [facility] [address] [facility] [address] [place] [address] Phone Care Team Providers Care Cold Roll Operator Name Role Phone Yessenia Rivera MD Primary Care Provider + Encounter Details Date Type Department Care Team (Late st Contact Info) Description 05/10/2017 Transcribe Orders [facility] [address] [place] [address] Kyra Amador MD Social History Tobacco Use Types Packs/Day Years Used Date Smoking Tobacco: Never Sex and Gender Information Value Date Recorded Sex Assigned at Not on file Legal Sex Male 6:42 PM EST Gender Identity Not on file Sexual Orientation Not on file documented as of this encounter Plan of Treatment Not on file documented as of this encounter Visit Diagnoses Not on filedocumented in this encounter Care Teams Cold Roll Operator Relationship Specialty Start Date End Date Yessenia Rivera MD [address] [place] [address] PCP - General Pediatrics 03/28/14 documented as of this encounter Additional Source Comments The information contained in this document represents components of the legal health record. It is not the complete legal health record.[facility]
== END 2025-06-04 15:35 | disposition home or self-care (01) ==
LOC: HO.HSMS 14:24
PROVIDERS: PCP Internal Medicine; Visit Provider Nurse Practitioner Family
DX: R51.0 Headache with orthostatic component, not elsewhere classified (principal); R42 Dizziness and giddiness; G43.709 Chronic migraine without aura, not intractable, without status migrainosus; R51.9 Headache, unspecified; G89.29 Other chronic pain; R06.83 Snoring
CPT/HCPCS: 99214